=== PATIENT | female | born 1955 | race Caucasian/White ===

== ENCOUNTER 2016-07-15 08:41 | Outpatient (CLI) | payer OTHER | END 2016-07-15 08:42 | disposition home or self-care (01) | DX: M85.89 Other specified disorders of bone density and structure, multiple sites (principal) ==

== ENCOUNTER 2016-08-30 09:53 | Outpatient (CLI) | payer OTHER | END 2016-08-30 09:54 | disposition home or self-care (01) | DX: R07.9 Chest pain, unspecified (principal) ==

== ENCOUNTER 2016-10-07 08:07 | Outpatient (CLI) | payer OTHER ==
--- NOTE | 2016-10-10 13:13 | Mammography Report ---
DIGITAL SCREENING MAMMOGRAM: 10/07/2016 CLINICAL INDICATION: A 61-year-old with history of late childbearing for screening. COMPARISON: 08/2015, 10/2013, 07/2011, 11/2007. TECHNIQUE: Routine CC and MLO projections were obtained of the breasts. FINDINGS: The breasts again demonstrate scattered fibroglandular densities bilaterally. Coarse and punctate, typically benign calcifications are present. No suspicious masses, clustered microcalcific ations, or regions of architectural distortion are identified. IMPRESSION: BENIGN FINDINGS. RECOMMENDATION: Routine annual screening unless otherwise clinically indicated. BI-ADEOLA category 2, benign findings. STANDARD QUALIFYING STATEMENTS 1. This examination was reviewed with the aid of Computer-Aided Detection (CAD). 2. A negative or benign imaging report should not delay biopsy if clinically suspicious findings are present. Consider surgical consultation if warranted. More than 5% of cancers are not identified by i maging. 3. Dense breasts may obscure an underlying neoplasm. JOB #: [id number] EXT JOB #:[id number]
== END 2016-10-07 08:08 | disposition home or self-care (01) ==
LOC: DI 08:07
PROVIDERS: ATTEND Family Medicine
DX: Z12.31 Encounter for screening mammogram for malignant neoplasm of breast (principal)
CPT/HCPCS: 77067

== ENCOUNTER 2017-04-21 07:24 | Outpatient (CLI) | payer OTHER ==
[2017-04-21 13:21] LABS: BASOPHILS % (AUTO) 0.4 %; EOSINOPHILS # (AUTO) 0.1 10^3/uL (0.0-0.7); EOSINOPHILS % (AUTO) 1.7 %; HCT - HEMATOCRIT 40.3 % (37.0-47.0); HGB - HEMOGLOBIN 14.1 g/dL (12.0-16.0); LYMPHOCYTES # (AUTO) 1.2 10^3/uL (1.5-3.5); LYMPHOCYTES % (AUTO) 30.6 %; MEAN CORPUSCULAR HEMOGLOBIN 32.1 pg (27.0-31.0); MEAN CORPUSCULAR HGB CONC 34.9 g/dL (32.0-36.0); MONOCYTES # (AUTO) 0.4 10^3/uL (0.0-1.0); MONOCYTES % (AUTO) 9.5 %; NEUTROPHILS # (AUTO) 2.2 10^3/uL (1.5-6.6); NEUTROPHILS % (AUTO) 57.8 %; NUCLEATED RED BLOOD CELLS AUTO 0.2 /100WBC; RED BLOOD COUNT 4.38 10^6/uL (4.20-5.40); RED CELL DISTRIBUTION WIDTH 13.1 % (12.0-15.0); UNCORRECTED WHITE BLOOD COUNT 3.8 x10^3/uL; WHITE BLOOD COUNT 3.8 x10^3/uL (4.8-10.8)
[2017-04-21 13:34] LABS: ALBUMIN/GLOBULIN RATIO 1.6 (1.0-2.2); BILIRUBIN,TOTAL 0.5 mg/dL (0.2-1.0); BUN - BLOOD UREA NITROGEN 15 mg/dL (6-20); CALCIUM 9.1 mg/dL (8.5-10.3); CARBON DIOXIDE - CO2 28 mmol/L (21-32); CHLORIDE 105 mmol/L (101-111); CHOL/HDL RATIO 2.3 (<4.4); CHOLESTEROL 206 mg/dL; CREATININE 0.7 mg/dL (0.4-1.0); GFR - MDRD 85 (>89); GLUCOSE 92 mg/dL (70-100); HDL CHOLESTEROL 88 mg/dL; LDL/HDL RATIO 1.2 (<4.4); POTASSIUM 3.8 mmol/L (3.5-5.0); SODIUM 142 mmol/L (135-145); TOTAL PROTEIN 7.3 g/dL (6.7-8.2); TRIGLYCERIDES 56 mg/dL; VLDL CHOLESTEROL 11 mg/dL
[2017-04-21 13:47] LABS: HEMOGLOBIN A1C 0.51 g/dL
== END 2017-04-21 07:25 | disposition home or self-care (01) ==
LOC: LAB.WCP 07:24
PROVIDERS: ATTEND Family Medicine
DX: R03.0 Elevated blood-pressure reading, without diagnosis of hypertension (principal); Z51.81 Encounter for therapeutic drug level monitoring; E11.9 Type 2 diabetes mellitus without complications; B19.20 Unspecified viral hepatitis C without hepatic coma
CPT/HCPCS: 36415; 80053; 80061; 83036; 84443; 85025; 87522

== ENCOUNTER 2017-11-17 07:47 | Outpatient (CLI) | payer OTHER ==
--- NOTE | 2017-11-17 13:05 | MRI Report ---
Procedure Date: 11/17/2017 Accession Number: [id number] / [id number] Procedure: MRI - Brain W/O CPT Code: FULL RESULT: EXAM: MRI BRAIN WITHOUT CONTRAST EXAM DATE: 11/17/2017 08:03 AM. CLINICAL HISTORY: 62-year-old with chronic headaches that been progressively worse over the past 2 years COMPARISON: None. TECHNIQUE: Multiplanar, multisequence T1-weighted and fluid-sensitive MR sequences of the brain were performed. Sequences optimized for routine evaluation. Other: None. IV Contrast: None. FINDINGS: Brain Volume: Normal for age. Parenchyma/Dura: No acute parenchymal hemorrhage, mass, or midline shift. Mild to moderate bilateral areas of T2/FLAIR signal hyperintensity seen. No areas restricted diffusion seen to suggest acute infarct. No abnormal areas of hemosiderin deposition seen on T2*sequence. Ventricles/Cisterns: No hydrocephalus. No abnormal extra-axial fluid collection or hemorrhage. Orbits: Symmetric and unremarkable. Sella Turcica: The pituitary gland, cavernous sinuses, suprasellar cistern and optic chiasm are unremarkable. IAC: Symmetric and unremarkable. Vasculature: Normal signal flow void is seen in the major arterial structures at the skull base. Sinuses: No acute appearing sinus disease. Bones: No focal pathologic appearing marrow signal changes. Other: None. IMPRESSION: 1. No acute infarct, intracranial hemorrhage, mass, hydrocephalus, or midline shift. 2. Mild to moderate white matter changes that are nonspecific. Potential etiologies include sequela of chronic small vessel ischemic disease and/or sequela chronic migraines. RADIA
== END 2017-11-17 07:48 | disposition home or self-care (01) ==
LOC: DI 07:47
PROVIDERS: ATTEND Family Medicine
DX: R51 Headache (principal)
CPT/HCPCS: 70551

== ENCOUNTER 2019-06-06 16:12 | Outpatient (CLI) | payer OTHER ==
--- NOTE | 2019-06-19 10:12 | DEXA Report ---
Reason: OSTEOPENIA Procedure Date: 06/06/2019 Accession Number: [id number] / [id number] Procedure: DEX - Dexa Spine and/or Hip CPT Code: Final Report FULL RESULT: EXAM: Dexa Spine and/or Hip DATE: 06/06/2019 4:56 PM CLINICAL HISTORY: OSTEOPENIA TECHNIQUE: Dual energy x-ray absorptiometry (DXA) was performed on a [employer] System. Regions measured are the AP Spine, femoral neck, and if needed forearm. COMPARISON: 07/15/2016. In accordance with the International Society for Clinical Densitometry (ISCD) guidelines, data from previous exams may be reanalyzed using current recommendations and techniques. This is done to allow a more accurate basis for comparison with the current study. FINDINGS: The data for the lumbar spine is as follows: BMD (g/cm/cm) T-SCORE Z-SCORE REGION L1 0.855 -2.3 -0.5 L2 0.955 -2.0 -0.2 L3 0.930 -2.3 -0.4 L4 0.929 -2.3 -0.4 TOTAL 0.918 -2.2 -0.4 NOTE: All evaluable vertebrae are used for classification The data for the hip is as follows: BMD (g/cm/cm) T-SCORE Z-SCORE REGION Neck 0.716 -2.3 -0.7 TOTAL 0.738 -2.1 -0.8 NOTE: The femoral neck or total proximal femur, whichever is lowest, is used for classification. DXA RESULTS SUMMARY: Spine SCAN DATE AGE BMD CHANGE VS CHANGE VS PREVIOUS PREVIOUS % 7/06[birth year]2019 [age] 0.918 -0.043* -4.5* 07[age]15/2016 [age] 0.961 * Denotes significant change at the 95% confidence level. Denotes dissimilar scan types or analysis methods. DXA RESULTS SUMMARY: Hip SCAN DATE AGE BMD CHANGE VS CHANGE VS PREVIOUS PREVIOUS % 7[birth year]06[birth year]2019 [age] 0.738 -0.003 -0.4 07/15/2016 [age] 0.741 * Denotes significant change at the 95% confidence level. Denotes dissimilar scan types or analysis methods. IMPRESSION: THE WHO CLASSIFICATION BASED ON THE INTERNATIONAL REFERENCE STANDARD IS OSTEOPENIA. THE FRACTURE RISK IS INCREASED. RECOMMENDATION: Patients with diagnosis of osteoporosis or osteopenia should have regular bone mineral density assessment. For those eligible for Medicare, routine testing is allowed once every 2 years. Testing frequency can be increased for patients who have rapidly progressing disease or for those who are receiving medical therapy to restore bone mass. COMMENT: World Health Organization (WHO) definitions for osteoporosis and osteopenia: NORMAL BMD: T-score at -1.0 or higher, fracture risk is low OSTEOPENIA BMD: T-score between -1.0 and -2.5, fracture risk is increased. OSTEOPOROSIS BMD: T-score at -2.5 or lower, fracture risk is high. National Osteoporosis Foundation recommends: 1. Obtain adequate dietary calcium (at least 1200 mg per day) and vitamin D (400-800 international units per day). 2. Participate, as appropriate, in regular weightbearing and muscle-strengthening exercise. 3. Avoid tobacco use and reduce alcohol and caffeine intake. 4. For more detailed information see the website at www.NOF.org.
== END 2019-06-06 16:13 | disposition home or self-care (01) ==
LOC: DI 16:12
PROVIDERS: ATTEND Family Medicine
DX: M85.89 Other specified disorders of bone density and structure, multiple sites (principal)
CPT/HCPCS: 77080

== ENCOUNTER 2019-06-07 08:00 | Outpatient (CLI) | payer OTHER ==
[2019-06-07 12:45] LABS: BASOPHILS % (AUTO) 0.3 %; EOSINOPHILS # (AUTO) 0.1 10^3/uL (0.0-0.7); EOSINOPHILS % (AUTO) 2.7 %; HGB - HEMOGLOBIN 14.3 g/dL (12.0-16.0); LYMPHOCYTES % (AUTO) 29.3 %; MEAN CORPUSCULAR HEMOGLOBIN 30.7 pg (27.0-31.0); MEAN CORPUSCULAR VOLUME 92.9 fL (81.0-99.0); MEAN PLATELET VOLUME 9.9 fL (7.9-10.8); MONOCYTES # (AUTO) 0.3 10^3/uL (0.0-1.0); MONOCYTES % (AUTO) 9.1 %; NEUTROPHILS # (AUTO) 1.9 10^3/uL (1.5-6.6); NEUTROPHILS % (AUTO) 58.3 %; PLT - PLATELET COUNT 231 10^3/uL (130-450); RED BLOOD COUNT 4.66 10^6/uL (4.20-5.40); RED CELL DISTRIBUTION WIDTH 12.2 % (12.0-15.0); WHITE BLOOD COUNT 3.3 x10^3/uL (4.8-10.8)
[2019-06-07 13:08] LABS: ALBUMIN 4.5 g/dL (3.2-5.5); ALBUMIN/GLOBULIN RATIO 1.6 (1.0-2.2); ALKALINE PHOSPHATASE 43 IU/L (42-121); ALT ALANINE AMINOTRANSFERASE 17 IU/L (10-60); AST ASPARTATE AMINOTRANSFERASE 21 IU/L (10-42); BILIRUBIN,TOTAL 0.9 mg/dL (0.2-1.0); BUN - BLOOD UREA NITROGEN 20 mg/dL (6-20); CALCIUM 9.1 mg/dL (8.5-10.3); CARBON DIOXIDE - CO2 25 mmol/L (21-32); CHLORIDE 104 mmol/L (101-111); CHOL/HDL RATIO 2.6 (<4.4); CHOLESTEROL 208 mg/dL; CREATININE 0.7 mg/dL (0.4-1.0); GFR - MDRD 85 (>89); GLUCOSE 109 mg/dL (70-100); HDL CHOLESTEROL 81 mg/dL; LDL CHOLESTEROL,CALCULATED 111 mg/dL; LDL/HDL RATIO 1.4 (<4.4); SODIUM 139 mmol/L (135-145); TOTAL PROTEIN 7.4 g/dL (6.7-8.2); VLDL CHOLESTEROL 16 mg/dL
[2019-06-07 13:09] LABS: CRP - C-REACTIVE PROTEIN < 1.0 mg/dL (0-1.0)
[2019-06-07 14:42] LABS: RHEUMATOID FACTOR NEGATIVE (Negative)
== END 2019-06-07 23:59 | disposition home or self-care (01) ==
LOC: LAB.WCP 08:00
PROVIDERS: ATTEND Family Medicine
DX: M85.80 Other specified disorders of bone density and structure, unspecified site (principal); K64.8 Other hemorrhoids; K58.9 Irritable bowel syndrome, unspecified; F32.9 Major depressive disorder, single episode, unspecified; F41.9 Anxiety disorder, unspecified; R85 Abnormal findings in specimens from digestive organs and abdominal cavity
CPT/HCPCS: 36415; 80053; 80061; 83721; 84443; 85025; 85651; 86140; 86200; 86430

== ENCOUNTER 2019-08-19 19:17 | Outpatient (CLI) | payer OTHER | END 2019-08-19 19:18 | disposition home or self-care (01) | LOC: COV 19:17 | PROVIDERS: ATTEND Family Medicine | DX: R05 Cough (principal); M79.10 Myalgia, unspecified site; J02.9 Acute pharyngitis, unspecified | CPT/HCPCS: 81599 ==

== ENCOUNTER 2021-05-14 07:00 | Outpatient (CLI) | payer BC, OTHER ==
[2021-05-14 13:32] LABS: ESTIMATED AVERAGE GLUCOSE 117 mg/dL (70-100); HEMOGLOBIN A1c% 5.7 % (4.27-6.07)
[2021-05-14 13:46] LABS: BASOPHILS % (AUTO) 0.3 %; EOSINOPHILS # (AUTO) 0.1 10^3/uL (0.0-0.7); EOSINOPHILS % (AUTO) 2.7 %; HCT - HEMATOCRIT 41.5 % (37.0-47.0); HGB - HEMOGLOBIN 13.6 g/dL (12.0-16.0); LYMPHOCYTES % (AUTO) 32.8 %; MEAN CORPUSCULAR HEMOGLOBIN 30.5 pg (27.0-31.0); MEAN CORPUSCULAR HGB CONC 32.8 g/dL (32.0-36.0); MEAN PLATELET VOLUME 9.7 fL (7.9-10.8); MONOCYTES # (AUTO) 0.3 10^3/uL (0.0-1.0); MONOCYTES % (AUTO) 11.1 %; NEUTROPHILS # (AUTO) 1.6 10^3/uL (1.5-6.6); NEUTROPHILS % (AUTO) 52.4 %; PLT - PLATELET COUNT 256 10^3/uL (130-450); RED BLOOD COUNT 4.46 10^6/uL (4.20-5.40); RED CELL DISTRIBUTION WIDTH 12.4 % (12.0-15.0)
[2021-05-14 14:04] LABS: ALBUMIN 4.1 g/dL (3.2-5.5); ALBUMIN/GLOBULIN RATIO 1.2 (1.0-2.2); ALKALINE PHOSPHATASE 50 IU/L (42-121); ALT ALANINE AMINOTRANSFERASE 18 IU/L (10-60); AST ASPARTATE AMINOTRANSFERASE 18 IU/L (10-42); BILIRUBIN,TOTAL 0.8 mg/dL (0.2-1.0); BUN - BLOOD UREA NITROGEN 19 mg/dL (6-20); CALCIUM 9.3 mg/dL (8.5-10.3); CARBON DIOXIDE - CO2 28 mmol/L (21-32); CHLORIDE 104 mmol/L (101-111); CHOL/HDL RATIO 2.3 (<4.4); CHOLESTEROL 208 mg/dL; CREATININE 0.7 mg/dL (0.4-1.0); GFR - MDRD 84 (>89); GLUCOSE 93 mg/dL (70-100); HDL CHOLESTEROL 90 mg/dL; LDL CHOLESTEROL,CALCULATED 109 mg/dL; LDL/HDL RATIO 1.2 (<4.4); POTASSIUM 4.1 mmol/L (3.5-5.0); SODIUM 141 mmol/L (135-145); TOTAL PROTEIN 7.5 g/dL (6.7-8.2); TRIGLYCERIDES 46 mg/dL; VLDL CHOLESTEROL 9 mg/dL
[2021-05-14 14:16] LABS: THYROID STIMULATING HORMONE 1.51 uIU/mL (0.34-5.60)
== END 2021-05-14 23:59 | disposition home or self-care (01) ==
LOC: LAB.WCP 07:00
PROVIDERS: ATTEND Nurse Practitioner
DX: Z00.00 Encounter for general adult medical examination without abnormal findings (principal); R53.83 Other fatigue; Z13.220 Encounter for screening for lipoid disorders
CPT/HCPCS: 36415; 80053; 80061; 82607; 83036; 83721; 84443; 85025

== ENCOUNTER 2021-06-17 09:48 | Outpatient (CLI) | payer MEDICARE ==
--- NOTE | 2021-06-17 17:11 | DEXA Report ---
PROCEDURE: Dexa Spine and/or Hip INDICATIONS: BONE DISORDER TECHNIQUE: Dual energy x-ray absorptiometry (DXA) was performed on a [email or web address] System. Regions measur ed are the AP Spine, femoral neck, and if needed forearm. COMPARISON: 06/06/2019. Bone mineral density FINDINGS: Lumbar Spine: Bone Mineral Density 0.869 g/cm/cm,T score -2.6, osteoporosis. Decreased 5.3% compared to prior. Left Hip: Bone Mineral Density 0.711 g/cm/cm,T score -2.4, osteopenia. Decreased 3.7% compared to prior. Left Femoral Neck: Bone Mineral Density 0.703 g/cm/cm, T score -2.4, osteopenia (T score greater or equal to -1.0: NORMAL) (T score from -1.1 to -2.4: OSTEOPENIA) (T score less than or equal to -2.5 to: OSTEOPOROSIS) Impression: Osteoporosis. Bone mineral density is decreased compared to prior DEXA on 06/06/2019. Patients with diagnosis of osteoporosis or osteopenia should have regular bone mineral density assess ment. For those eligible for Medicare, routine testing is allowed once every 2 years. Testing frequ ency can be increased for patients who have rapidly progressing disease or for those who are receivin g medical therapy to restore bone mass. Reviewed by: Kareem Rosenberg on 06/17/2021 5:09 PM PST Approved by: Kareem Rosenberg on 06/17/2021 5:09 PM PST Station ID: [id number]
== END 2021-06-17 09:49 | disposition home or self-care (01) ==
LOC: DI 09:48
PROVIDERS: ATTEND Family Medicine
DX: M81.0 Age-related osteoporosis without current pathological fracture (principal)

== ENCOUNTER 2021-07-08 08:26 | Outpatient (CLI) | payer MEDICARE ==
--- NOTE | 2021-07-09 09:35 | Mammography Report ---
BILATERAL DIGITAL SCREENING MAMMOGRAM 3D/2D: 07/08/2021 CLINICAL: Routine screening. Comparison is made to exams dated: 10/07/2016 mammogram, 09/16/2015 mammogram, and 11/08/2013 mammogram - [facility]. There are scattered fibroglandular elements in both breasts. No significant masses, calcifications, or other findings are seen in either breast. There has been no significant interval change. IMPRESSION: NEGATIVE There is no mammographic evidence of malignancy. A 1 year screening mammogram is recommended. This exam was interpreted at Station ID: [id number]. NOTE: For mammograms, a report in lay terms will be sent to the patient. Approximately 15% of breast malignancies will not be visualized mammographically. In the management of a palpable breast mass, a negative mammogram must not discourage biopsy of a clinically suspicious lesion. Electronically Signed By: Rogelio Arreaga M.D. slc/penrad:07/08/2021 10:30:10 ACR BI-RADS Category 1: Negative 3341F PARENCHYMAL PATTERN: (A) - The breast(s) demonstrate(s) scattered fibroglandular densities. BI-RADS CATEGORY: (1) - 1 RECOMMENDATION: (ANNUAL) - Recommend routine annual screening mammography. [id number] 1 year screening LATERALITY: (B)
== END 2021-07-08 08:27 | disposition home or self-care (01) ==
LOC: DI.N 08:26
DX: Z12.31 Encounter for screening mammogram for malignant neoplasm of breast (principal)

== ENCOUNTER 2022-02-17 11:41 | Outpatient (CLI) | payer MEDICARE ==
[2022-02-17 12:24] LABS: HCT - HEMATOCRIT 44.5 % (37.0-47.0); HGB - HEMOGLOBIN 14.7 g/dL (12.0-16.0); MEAN CORPUSCULAR HEMOGLOBIN 30.8 pg (27.0-31.0); MEAN CORPUSCULAR VOLUME 93.1 fL (81.0-99.0); MEAN PLATELET VOLUME 9.1 fL (7.9-10.8); RED BLOOD COUNT 4.78 10^6/uL (4.20-5.40); RED CELL DISTRIBUTION WIDTH 12.2 % (12.0-15.0); WHITE BLOOD COUNT 5.2 x10^3/uL (4.8-10.8)
[2022-02-17 12:47] LABS: URIC ACID 6.5 mg/dL (2.6-7.2)
[2022-02-17 13:02] LABS: CRP - C-REACTIVE PROTEIN < 1.0 mg/dL (0-1.0)
[2022-02-17 13:28] LABS: RHEUMATOID FACTOR NEGATIVE (Negative)
--- NOTE | 2022-02-17 15:32 | XRAY Report ---
PROCEDURE: Foot 2 View RT INDICATIONS: FOOT PAIN TECHNIQUE: 2 views of the foot were acquired. COMPARISON: X-ray foot 10/24/2017 FINDINGS: Bones: No fractures or dislocations. No suspicious bony lesions. Prominent degenerative changes ar e noted at the first MTP joint. It is minimally progressive compared to prior exam. Soft tissues: No tibiotalar joint effusion. Achilles tendon appears normal. IMPRESSION: Degenerative change most notable at the first MTP joint. Reviewed by: Alla Urbano MD on 02/17/2022 3:30 PM PDT Approved by: Alla Urbano MD on 02/17/2022 3:30 PM PDT Station ID: [id number]
--- NOTE | 2022-02-17 16:54 | XRAY Report ---
PROCEDURE: Hand 3 View BILAT INDICATIONS: HAND PAIN TECHNIQUE: 3 views of the hand(s) acquired. COMPARISON: None FINDINGS: Bones: Generalized decreased osseous mineralization present. Joint spaces narrowing noted involving t he distal interphalangeal joints with small marginal osteophytes. No evidence of marginal erosions Soft tissues: No suspicious soft tissue calcifications. IMPRESSION: 1. Osteopenia and distal osteoarthritis Reviewed by: Viraj Kelly MD on 02/17/2022 3:53 PM AKDT Approved by: Viraj Kelly MD on 02/17/2022 3:53 PM AKDT Station ID: [id number]
[2022-02-18 17:09] LABS: ANTI-DNA (DS) AB QN <1 IU/mL (0-9); CENTROMERE B ANTIBODIES <0.2 AI (0.0-0.9); CHROMATIN ANTIBODIES <0.2 AI (0.0-0.9); JO-1 AB <0.2 AI (0.0-0.9); RIBOSOMAL P ANTIBODIES <0.2 AI (0.0-0.9); RNP ANTIBODIES 0.2 AI (0.0-0.9); SCLERODERMA-70 ANTIBODIES <0.2 AI (0.0-0.9); SJOGREN'S ANTI-SS-A <0.2 AI (0.0-0.9); SJOGREN'S ANTI-SS-B <0.2 AI (0.0-0.9); SMITH ANTIBODIES <0.2 AI (0.0-0.9); SMITH/RNP ANTIBODIES <0.2 AI (0.0-0.9)
[2022-02-21 21:07] LABS: CYCLIC CITRULLINATED PEP IGG/A 7 units (0-19)
== END 2022-02-17 11:42 | disposition home or self-care (01) ==
LOC: DI 11:41
PROVIDERS: ATTEND Nurse Practitioner
DX: M19.041 Primary osteoarthritis, right hand (principal); M85.88 Other specified disorders of bone density and structure, other site; M19.071 Primary osteoarthritis, right ankle and foot
CPT/HCPCS: 36415; 84550; 85027; 85651; 86140; 86200; 86225; 86235; 86430

== ENCOUNTER 2023-03-24 13:32 | Outpatient (CLI) | payer OTHER ==
--- NOTE | 2023-03-24 14:25 | Ultrasound Report ---
PROCEDURE: Pelvic w/Transvaginal INDICATIONS: OVARIAN CYST TECHNIQUE: Real-time scanning was performed of the pelvic organs, with image documentation. Additional endovagi nal scanning was necessary due to incomplete visualization of the adnexal and endometrial structures by transabdominal scanning. COMPARISON: None. FINDINGS: Uterus: Uterus is retroverted and normal in size at 5.3 x 3.3 x 3.4 cm. The myometrium is heterogen eous. The endometrium measures 2 mm in combined thickness. Coarse calcification is seen within the endometrium. Ovaries: The right ovary measures 3.7 x 3.4 x 3.9 cm, with a calculated ovarian volume of 25.8 cc. Right simple ovarian cyst measuring 3.0 cm. The left ovary measures 2.8 x 1.6 x 1.2 cm, with a calcul ated ovarian volume of 2.6 cc. The left ovary is seen transabdominally only. There is dilated tubular structure measuring 8 mm, possible left hydrosalpinx. Less than 12 follicles can be seen in each ova ry. No adnexal masses are seen. No cystic lesions measuring greater than 3 cm. Other: No pathologic free abdominal or pelvic fluid. IMPRESSION: 1.Right ovarian simple cyst measuring 3.0 cm. Recommend 6-12 week follow-up. 2.Left ovary is visualized transabdominally only. Possible left hydrosalpinx measuring up to 8 mm. Reviewed by: Alejandro Arroyo MD on 03/24/2023 2:23 PM PST Approved by: Alejandro Arroyo MD on 03/24/2023 2:23 PM PST Station ID: [id number]
== END 2023-03-24 13:33 | disposition home or self-care (01) ==
LOC: DI 13:32
PROVIDERS: ATTEND Physician Assistant
DX: N83.201 Unspecified ovarian cyst, right side (principal)

== ENCOUNTER 2023-04-07 07:11 | Outpatient (CLI) | payer OTHER ==
[2023-04-07 13:24] LABS: BASOPHILS % (AUTO) 0.3 %; EOSINOPHILS # (AUTO) 0.1 10^3/uL (0.0-0.7); EOSINOPHILS % (AUTO) 1.9 %; HCT - HEMATOCRIT 42.7 % (37.0-47.0); HGB - HEMOGLOBIN 14.3 g/dL (12.0-16.0); LYMPHOCYTES # (AUTO) 1.5 10^3/uL (1.5-3.5); LYMPHOCYTES % (AUTO) 39.9 %; MEAN CORPUSCULAR HGB CONC 33.5 g/dL (32.0-36.0); MEAN CORPUSCULAR VOLUME 92.6 fL (81.0-99.0); MEAN PLATELET VOLUME 10.2 fL (7.9-10.8); MONOCYTES # (AUTO) 0.4 10^3/uL (0.0-1.0); MONOCYTES % (AUTO) 9.5 %; NEUTROPHILS # (AUTO) 1.8 10^3/uL (1.5-6.6); NEUTROPHILS % (AUTO) 48.1 %; PLT - PLATELET COUNT 227 10^3/uL (130-450); RED BLOOD COUNT 4.61 10^6/uL (4.20-5.40); RED CELL DISTRIBUTION WIDTH 12.5 % (12.0-15.0); WHITE BLOOD COUNT 3.8 x10^3/uL (4.8-10.8)
[2023-04-07 13:35] LABS: ALBUMIN 4.4 g/dL (3.2-5.5); ALBUMIN/GLOBULIN RATIO 1.6 (1.0-2.2); ALKALINE PHOSPHATASE 56 IU/L (42-121); ALT ALANINE AMINOTRANSFERASE 16 IU/L (10-60); AST ASPARTATE AMINOTRANSFERASE 19 IU/L (10-42); BILIRUBIN,TOTAL 0.6 mg/dL (0.2-1.0); BUN - BLOOD UREA NITROGEN 11 mg/dL (6-20); CALCIUM 9.9 mg/dL (8.5-10.3); CARBON DIOXIDE - CO2 29 mmol/L (21-32); CHLORIDE 105 mmol/L (101-111); CHOL/HDL RATIO 2.6 (<4.4); CHOLESTEROL 211 mg/dL; CREATININE 0.8 mg/dL (0.6-1.3); GFR - MDRD 72 (>89); GLUCOSE 100 mg/dL (74-104); HDL CHOLESTEROL 81 mg/dL; LDL CHOLESTEROL,CALCULATED 112 mg/dL; LDL/HDL RATIO 1.4 (<4.4); SODIUM 140 mmol/L (135-145); TOTAL PROTEIN 7.1 g/dL (6.4-8.9); TRIGLYCERIDES 92 mg/dL (48-352); VLDL CHOLESTEROL 18 mg/dL
[2023-04-07 13:38] LABS: THYROID STIMULATING HORMONE 2.85 uIU/mL (0.34-5.60)
== END 2023-04-07 07:12 | disposition home or self-care (01) ==
LOC: LAB.N 07:11
PROVIDERS: ATTEND Physician Assistant
DX: R73.01 Impaired fasting glucose (principal); R53.83 Other fatigue; Z13.220 Encounter for screening for lipoid disorders; Z79.899 Other long term (current) drug therapy; K64.8 Other hemorrhoids
CPT/HCPCS: 36415; 80053; 80061; 83721; 84443; 85025

== ENCOUNTER 2023-05-31 09:06 | Day surgery (SDC) | payer OTHER ==
[2023-05-31] MEDS ORDERED: LACTATED RINGERS 1,000 ML IV ONE ×2 (09:30→10:42)
--- NOTE | 2023-05-31 10:05 | ANESTHESIA ---
Pre-Anesthesia VS, & Labs - Diagnosis SCREENING - Procedure COLONOSCOPY Vital Signs: Temp Pulse Resp BP Pulse Ox O2 Flow Rate 36.3 C L 74 17 156/88 H 100 05/31/23 09:21 05/31/23 09:21 05/31/23 09:21 05/31/23 09:21 05/31/23 09:21 Height: 5 ft 5 in Weight (kg): 54.8 kg Body Mass Index: 20.0 BMI Classification: Normal - NPO Last Fluid Intake: 529 - Is Patient ?: No Home Medications and Allergies Home Medications: Ambulatory Orders No Known Home Medications 05/30/23 No Known Home Medications 05/30/23 Allergies/Adverse Reactions: Allergies Allergy/AdvReac Type Severity Reaction Status Date / Time No Known Drug Allergies Allergy Verified 05/30/23 12:43 Anes History & Medical History - Anesthetic History Anesthesia Complications: reports: No previous complications Family history of Anesthesia Complications: Denies Family history of Malignant Hyperthermia: Denies - Medical History Cardiovascular: reports: None Pulmonary: reports: None Gastrointestinal: reports: None Musculoskeletal: reports: Osteoarthritis, Osteoporosis Endocrine/Autoimmune: reports: None Skin: reports: None - Surgical History General: reports: Colonoscopy Eyes Ears Nose Throat (EENT): reports: Other Gynecologic: reports: section Results - EKG Results EKG Comparison: Reviewed EKG Exam General: Alert Dental: WNL Mouth Openin Fingerbreadth Neck Mobility: Normal Mallampati classification: II Thyromental Distance: 4-6 cm Plan Anesthesia Type: Total IV Consent for Procedure(s) Verified and Reviewed: Yes Code Status: Attempt Resuscitation ASA classification: 1-Healthy patient Is this case an emergency?: No
[2023-05-31 11:14] VITALS: BP 131/85; O2SAT 98
--- NOTE | 2023-05-31 13:42 | ANESTHESIA POST OP EVALUATION ---
Anesthesia Post Eval - Post Anesthesia Eval Vitals: Last Vital Signs Temp 36.5 C 05/31/23 10:54 Pulse 60 05/31/23 10:54 Resp 16 05/31/23 10:54 BP 131/85 H 05/31/23 10:54 Pulse Ox 98 05/31/23 10:54 O2 Flow Rate CV Function Including HR & BP: Stable Pain Control: Satisfactory Nausea & Vomiting: Negative Mental Status: Baseline Respiratory Status: Airway Patent Hydration Status: Satisfactory Anesthesia Complications: None
== END 2023-05-31 09:07 | disposition home or self-care (01) ==
LOC: SDS 09:06
PROVIDERS: ATTEND Surgery
DX: Z12.11 Encounter for screening for malignant neoplasm of colon (principal); K64.9 Unspecified hemorrhoids; K57.30 Diverticulosis of large intestine without perforation or abscess without bleeding; Z87.19 Personal history of other diseases of the digestive system
CPT/HCPCS: G0121; J7120

== ENCOUNTER 2023-06-10 14:56 | Outpatient (CLI) | payer OTHER ==
--- NOTE | 2023-06-10 19:55 | Ultrasound Report ---
PROCEDURE: Pelvic w/Transvaginal INDICATIONS: OVARIAN CYST TECHNIQUE: Real-time scanning was performed of the pelvic organs, with image documentation. Additional endovagi nal scanning was necessary due to incomplete visualization of the adnexal and endometrial structures by transabdominal scanning. COMPARISON: Pelvic ultrasound on March 24, 2023. FINDINGS: Uterus: Uterus is anteverted and normal in size at 5.2 x 2.5 x 4.1 cm. The myometrium is heterogene ous. The endometrium measures 2 mm in combined thickness. Coarse calcifications within the endometr ium, as before, likely benign. Ovaries: The right ovary measures 3.5 x 2.7 x 3.8 cm, with a calculated ovarian volume of 19 cc. Rig ht ovarian simple cyst measuring 2.9 x 2.8 x 2.5 cm, previously 3 x 2.9 x 2.7 cm. The left ovary william ures 2.1 x 1.3 x 1 cm, with a calculated ovarian volume of 1.5 cc. The ovaries have a normal sonogra phic appearance. Less than 12 follicles can be seen in each ovary. No adnexal masses are seen. No c ystic lesions measuring greater than 3 cm. Similar appearance of left-sided tubular anechoic region w ith no internal vascularity suggestive of hydrosalpinx. Other: No pathologic free abdominal or pelvic fluid. IMPRESSION: 1.Endometrial thickness is 2 mm. 2.Right ovarian cyst is similar in size measuring 2.9 x 2.8 x 2.5 cm, previously 3 x 2.9 x 2.7 cm. Pe r SRU guidelines, recommend annual ultrasound follow-up. 3.Similar appearance of left adnexal tubular anechoic region. Differential includes hydrosalpinx, terry ngated paraovarian cyst or cystic ovarian neoplasm. Consider a pelvic MRI for further evaluation, at clinical discretion. Reviewed by: Dago Barrientos MD on 06/10/2023 7:53 PM PST Approved by: Dago Barrientos MD on 06/10/2023 7:53 PM PST Station ID: [id number]
== END 2023-06-10 14:57 | disposition home or self-care (01) ==
LOC: DI 14:56
PROVIDERS: ATTEND Physician Assistant
DX: N83.201 Unspecified ovarian cyst, right side (principal); N70.11 Chronic salpingitis

== ENCOUNTER 2023-07-21 14:21 | Outpatient (CLI) | payer OTHER ==
--- NOTE | 2023-07-24 09:27 | Mammography Report ---
BILATERAL DIGITAL SCREENING MAMMOGRAM 3D/2D: 07/21/2023 CLINICAL: Routine screening. Comparison is made to exams dated: 07/08/2021 mammogram, 10/07/2016 mammogram, 09/16/2015 mammogram, and 11/08/2013 mammogram - [facility]. There are scattered areas of fibroglandular density in both breasts (category b / 25%-50% glandular t issue). No significant masses, calcifications, or other findings are seen in either breast. There has been no significant interval change. IMPRESSION: NEGATIVE There is no mammographic evidence of malignancy. A 1 year screening mammogram is recommended. Based on the Tyrer Cuzick model (a risk assessment model) the patient's lifetime risk is 5.9% and her 10 year risk is 3.1%. According to the ACR, ACS, and NCCN guidelines, an annual breast MRI exam kaykay g with mammogram is recommended if the patient's lifetime risk is 20% or greater. This exam was interpreted at Station ID: [id number]. NOTE: For mammograms, a report in lay terms will be sent to the patient. Approximately 15% of breast malignancies will not be visualized mammographically. In the management of a palpable breast mass, a negative mammogram must not discourage biopsy of a clinically suspicious lesion. Electronically Signed By: Sylvia barreto/sharath:07/21/2023 17:08:07 letter sent: No_Letter ACR BI-RADS Category 1: Negative 3341F PARENCHYMAL PATTERN: (A) - The breast(s) demonstrate(s) scattered fibroglandular densities. BI-RADS CATEGORY: (1) - 1 RECOMMENDATION: (ANNUAL) - Recommend routine annual screening mammography. [id number] 1 year screening LATERALITY: (B)
== END 2023-07-21 14:22 | disposition home or self-care (01) ==
LOC: DI 14:21
DX: Z12.31 Encounter for screening mammogram for malignant neoplasm of breast (principal); R92.323 Mammographic fibroglandular density, bilateral breasts

== ENCOUNTER 2023-07-21 14:22 | Outpatient (CLI) | payer OTHER ==
--- NOTE | 2023-07-21 16:54 | DEXA Report ---
PROCEDURE: Dexa Spine and/or Hip INDICATIONS: POST MENOPAUSAL TECHNIQUE: Dual energy x-ray absorptiometry (DXA) was performed on a MR Prest[employer] System. Regions measur ed are the AP Spine, femoral neck, and if needed forearm. COMPARISON: 06/17/2021, 06/06/2019, 07/15/2016 FINDINGS: Lumbar Spine: Bone Mineral Density: 0.872 g/cm/cm,T score: -2.5. There has been no statistically significant mcclendon e in bone mineral density since the prior study. Left Femoral Neck: Bone Mineral Density: 0.720 g/cm/cm, T score: -2.3. Left Hip: Bone Mineral Density: 0.727 g/cm/cm,T score: -2.2. There has been no statistically significant change in bone mineral density since the prior study. (T score greater or equal to -1.0: NORMAL) (T score from -1.1 to -2.4: OSTEOPENIA) (T score less than or equal to -2.5 to: OSTEOPOROSIS) Impression: By WHO criteria, this patient has osteoporosis. No statistical interval change in bone mineral density of the lumbar spine. No statistical interval c hange in bone mineral density of the hip. Patients with diagnosis of osteoporosis or osteopenia should have regular bone mineral density assess ment. For those eligible for Medicare, routine testing is allowed once every 2 years. Testing frequ ency can be increased for patients who have rapidly progressing disease or for those who are receivin g medical therapy to restore bone mass. Reviewed by: Andreas Alva MD on 07/21/2023 4:52 PM PDT Approved by: Andreas Alva MD on 07/21/2023 4:52 PM PDT Station ID: [id number]
== END 2023-07-21 14:23 | disposition home or self-care (01) ==
LOC: DI 14:22
PROVIDERS: ATTEND Physician Assistant
DX: Z78.0 Asymptomatic menopausal state (principal); M81.0 Age-related osteoporosis without current pathological fracture

== ENCOUNTER 2024-01-15 09:30 | Outpatient (CLI) | payer OTHER ==
--- NOTE | 2024-01-15 11:19 | XRAY Report ---
PROCEDURE: Cervical Spine 2-3V INDICATIONS: NECK PAIN TECHNIQUE: 3 view(s) of the cervical spine were acquired. COMPARISON: None. FINDINGS: Bones: No fractures or dislocations to the superior endplate of T2 level. The lateral masses of C1 appear intact on the odontoid view. No suspicious bony lesions. Straightening of cervical lordosis. Multilevel cervical spondylosis most prominent at C6-7 and C7-T1 where there is mild disc space loss, degenerative endplate changes, and endplate osteophytes. Soft tissues: No prevertebral soft tissue swelling. IMPRESSION: No displaced fracture or traumatic subluxation. Multilevel cervical spondylosis most prominent at C6-7 and C7-T1. Straightening of cervical lordosis likely related to positioning and/or concurrent muscle spasms. Reviewed by: Ari Reyna MD on 01/15/2024 10:18 AM OLEGARIO Approved by: Ari Reyna MD on 01/15/2024 10:18 AM OLEGARIO Station ID: [id number]
== END 2024-01-15 09:45 | disposition home or self-care (01) ==
LOC: DI.N 09:30
PROVIDERS: ATTEND Family Medicine
DX: M47.812 Spondylosis without myelopathy or radiculopathy, cervical region (principal)